=== PATIENT | female | born 1995 | race Caucasian/White ===

== ENCOUNTER 2016-08-01 19:35 | Emergency (ER) | payer MEDICAID ==
[2016-03-14 10:58] VITALS: BMI 29.5
[~2016-08-01 19:35] MED LIST: BENADRYL50 MG PO; IBUPROFEN600 MG PO; PERCOCET 10/3251 TA1 PO; PERCOCET 5-3251 TAB PO; PRENATAL COMPLE1 TAB PO
== END 2016-08-02 00:20 | disposition home or self-care (01) ==
LOC: D.ER 19:35
DX: J06.9 Acute upper respiratory infection, unspecified (principal); F17.200 Nicotine dependence, unspecified, uncomplicated

== ENCOUNTER → 2016-12-14 13:48 | Outpatient (CLI) | payer MEDICAID ==
[2016-03-14 10:58] VITALS: BMI 29.5
[2016-12-14 14:39] LABS: APPEARANCE HAZY (CLEAR); BACTERIA FEW /hpf (NONE SEEN); BILIRUBIN NEGATIVE (NEGATIVE); COLOR DK YELLOW (YELLOW); EPITHELIAL CELLS 0-5 /hpf (0-5); GLUCOSE NEGATIVE (NEGATIVE); KETONE LARGE mg/dL (NEGATIVE); LEUKOCYTE ESTERASE TRACE (NEGATIVE); NITRITE NEGATIVE (NEGATIVE); PROTEIN NEGATIVE (NEGATIVE); RED CELLS - URINE 0-5 /hpf (0-5); SPECIFIC GRAVITY 1.015 (1.005-1.020); UROBILINOGEN NORMAL (NORMAL); WHITE CELLS - URINE 0-5 /hpf (0-5)
[2016-12-14 14:40] LABS: AMORPHOUS SEDIMENT <1+ /lpf (NONE SEEN)
[2016-12-14 14:46] LABS: UDS - AMPHET NEGATIVE QUAL (NEGATIVE); UDS - BARB NEGATIVE QUAL (NEGATIVE); UDS - BENZO NEGATIVE QUAL (NEGATIVE); UDS - COCAINE NEGATIVE QUAL (NEGATIVE); UDS - METH NEGATIVE QUAL (NEGATIVE); UDS - OPIATE NEGATIVE QUAL (NEGATIVE); UDS - PCP NEGATIVE QUAL (NEGATIVE); UDS - THC POSITIVE QUAL (NEGATIVE)
[2016-12-14 15:18] LABS: HEMATOCRIT 35.9 % (36.0-48.0); HEMOGLOBIN 12.9 g/dL (12-16); MCH 34.8 pg (26.0-34.0); MCHC 35.9 g/dL (31.0-37.0); MCV 96.8 fL (80.0-100.0); MEAN PLATELET VOLUME 9.9 fL (7.4-10.4); RBC 3.71 10x6/uL (4.00-5.40); RDW 12.6 % (11.5-14.5); WBC 13.3 10x3/uL (4.8-10.8)
== END | disposition home or self-care (01) ==
LOC: D.LDO 13:48
PROVIDERS: Obstetrics & Gynecology
DX: O09.893 Supervision of other high risk pregnancies, third trimester (principal); Z3A.31 31 weeks gestation of pregnancy; B19.20 Unspecified viral hepatitis C without hepatic coma

== ENCOUNTER 2017-01-10 12:26 | Emergency (ER) | payer MEDICAID ==
[2016-03-14 10:58] VITALS: BMI 29.5
== END 2017-01-10 13:25 | disposition home or self-care (01) ==
LOC: D.ER 12:26
DX: O26.893 Other specified pregnancy related conditions, third trimester (principal); Z3A.30 30 weeks gestation of pregnancy; H66.90 Otitis media, unspecified, unspecified ear; J06.9 Acute upper respiratory infection, unspecified; B19.20 Unspecified viral hepatitis C without hepatic coma; F17.200 Nicotine dependence, unspecified, uncomplicated

== ENCOUNTER → 2017-01-17 18:26 | Outpatient (CLI) | payer MEDICAID ==
[2016-03-14 10:58] VITALS: BMI 29.5
[~2017-01-17 18:26] MED LIST changes: +KLONOPIN0.5 MG PO
== END | disposition home or self-care (01) ==
LOC: D.LDO 18:26
DX: O16.3 Unspecified maternal hypertension, third trimester (principal); Z3A.31 31 weeks gestation of pregnancy

== ENCOUNTER 2017-03-04 07:40 | Inpatient (IN) | payer MEDICAID ==
[~2017-03-04] VITALS: Ht 167.6 cm; Wt 70.3 kg
[2017-03-04 08:08] LABS: UDS - AMPHET NEGATIVE QUAL (NEGATIVE); UDS - BARB NEGATIVE QUAL (NEGATIVE); UDS - BENZO NEGATIVE QUAL (NEGATIVE); UDS - COCAINE NEGATIVE QUAL (NEGATIVE); UDS - METH NEGATIVE QUAL (NEGATIVE); UDS - OPIATE NEGATIVE QUAL (NEGATIVE); UDS - PCP NEGATIVE QUAL (NEGATIVE); UDS - THC NEGATIVE QUAL (NEGATIVE)
[2017-03-04 08:09] LABS: APPEARANCE CLEAR (CLEAR); BILIRUBIN NEGATIVE (NEGATIVE); COLOR YELLOW (YELLOW); GLUCOSE NEGATIVE (NEGATIVE); KETONE NEGATIVE (NEGATIVE); LEUKOCYTE ESTERASE NEGATIVE (NEGATIVE); NITRITE NEGATIVE (NEGATIVE); PROTEIN NEGATIVE (NEGATIVE); UROBILINOGEN NORMAL (NORMAL)
[2017-03-04 08:27] VITALS: BP 123/73; Ht 167.6 cm; Wt 70.3 kg
[2017-03-04 09:15] LABS: HEMATOCRIT 35.3 % (36.0-48.0); HEMOGLOBIN 12.7 g/dL (12-16); MCV 97.2 fL (80.0-100.0); MEAN PLATELET VOLUME 10.6 fL (7.4-10.4); RBC 3.63 10x6/uL (4.00-5.40); RDW 12.7 % (11.5-14.5); WBC 14.6 10x3/uL (4.8-10.8)
--- NOTE | 2017-03-04 19:50 | NUR ---
ASSISTED PT UP TO BATHROOM TO VOID. PT AMBULATED WITH STEADY GAIT WITH NO ASSISTANCE OF NURSE. REPORTS SENSATION HAS RETURNED TO LLE BUT NOW C/O SEVERE PAIN IN SCIATIC AREA OF L LEG AND LOWER BACK. PT ALSO C/O HEADACHE AGAIN. PT VOIDED WITHOUT DIFFICULTY AND AMBULATED BACK INTO BED WITHOUT ASSISTANCE. DR. MERCADO NOTIFIED OF PTS C/O. NEW ORDER RVD FOR PRN PAIN MED. SEE ORDERS.
[2017-03-04 19:55] LABS: HIV 1 & 2- RAPID SCREEN NEGATIVE (NEGATIVE)
--- NOTE | 2017-03-04 20:06 | NUR ---
ICE WATER, COLA, AND COFFEE PROVIDED PER PT REQUEST. PT REQUEST PRN PAIN MED FOR CRAMPING AND LOWER BACK PAIN "11/27". SEE EMAR FOR MOTOR ELECTRICIAN. NO OTHER NEEDS VOICED. INSTRUCTED TO CALL FOR ANY NEEDS. PT VERB UNDERSTANDING.
--- NOTE | 2017-03-04 20:45 | NUR ---
PT ASSISTED UP TO BATHROOM TO VOID. VOIDED LARGE AMOUNT WITHOUT DIFFICULTY. PT PERFORME OWN SCOT CARE. CLEAN MESH PANTIES/PAD PLACED. PT ASSISTED BACK INTO BED. DENIES ANY OTHER NEEDS OR CONCERNS.
--- NOTE | 2017-03-04 22:10 | NUR ---
PT REQUESTS IV BE TAKEN OUT. LOCHIA SCANT WITH NO CLOTS. PT VOIDING WITHOUT DIFFICULTY. AMBULATING WITHOUT DIFFICULTY. IV TO L WRIST DC'D PER REQUEST WITH TIP INTACT. BANDAGE AND PRESSURE TO SITE. PT TOLERATED WELL.
--- NOTE | 2017-03-05 00:01 | NUR ---
Pt ambulatory in hallways and at nurses desk speaking to nurses. Denies any needs.
--- NOTE | 2017-03-05 02:12 | NUR ---
Pt request prn pain med for lower back pain and pain in sciatic area. Pt rates pain "8/10". Also given heating pad to help relieve pain. No other needs voiced. C/L in reach. Bed low. SR upx2.
--- NOTE | 2017-03-05 02:13 | NUR ---
Pt reports voiding without difficulty. Vag bleeding scant with no clots. Fundus firm 1FB below umbillicus and midline.
--- NOTE | 2017-03-05 02:44 | NUR ---
Pt ambulatory to nurses desk requesting refill on ice water. Ice water provided. Pt then went to NBN to check on infant.
[2017-03-05 04:24] VITALS: BP 143/78
--- NOTE | 2017-03-05 04:25 | NUR ---
Pt approaches desk reporting pain in bilateral upper quadrants of abdomen. Followed pt to room to obtain VS and further assess pts pain. Abd soft and non tender to palpation. BS active x4 quads. Pt reports pain starts when she lays on her left side. Offered prn pain med and pt accepted. See EMAR. Will follow up to assess effectiveness. Pt denies any other needs. C/L in reach. Bed low. SR upx2.
[2017-03-05 05:51] LABS: BASOPHILS 0.2 % (0-2); EOSINOPHILS 0.6 % (0-7); HEMATOCRIT 32.8 % (36.0-48.0); HEMOGLOBIN 11.6 g/dL (12-16); IMMATURE GRANULOCYTES 0.4 % (0-5); LYMPHOCYTES 32.9 % (15-50); MCH 34.5 pg (26.0-34.0); MCHC 35.4 g/dL (31.0-37.0); MCV 97.6 fL (80.0-100.0); MEAN PLATELET VOLUME 10.5 fL (7.4-10.4); NEUTROPHILS 59.9 % (40-80); PLATELET COUNT 180 10x3/uL (130-400); RBC 3.36 10x6/uL (4.00-5.40); RDW 12.7 % (11.5-14.5)
--- NOTE | 2017-03-05 06:00 | NUR ---
Pt ambulatory to nurses desk. Reports is feeling better this morning. Denies any needs. Ambulated to room with steady gait.
[2017-03-05 07:03] VITALS: BP 109/66
--- NOTE | 2017-03-05 07:03 | NUR ---
RECEIVED PT LYING SUPINE IN BED. AWAKE. VSS. HRRR WITHOUT AUDIBLE MURMUR. INSPIRATORY WHEEZES NOTED TO UPPER LOBES. CLEAR TO LOWER LOBES. BS X 4. ABDOMEN SOFT/NON-DISTENDED. FUNDUS FIRM AT U/U. RUBRA LOCHIA SMALL AMT. NO CLOTS OR HEAVY BLEEDING NOTED. NEG HOMANS' SIGN. PPP. NO EDEMA NOTED TO BLE. PT DENIES NEEDS. SR UPX 2. CALL LIGHT IN REACH.
[2017-03-05 07:26] LABS: RAPID PLASMA REAGIN Non Reactive (Non Reactive)
--- NOTE | 2017-03-05 08:00 | NUR ---
INFANT TO MOM FOR FEEDING AND BONDING. PT DENIES C/O OR NEEDS.
--- NOTE | 2017-03-05 08:15 | NUR ---
DR NORTH TO ROOM. VISITS WITH PT.
--- NOTE | 2017-03-05 09:30 | NUR ---
PT LYING SUPINE IN BED. ON PHONE AT THIS TIME. DENIES C/O OR NEEDS.
--- NOTE | 2017-03-05 11:11 | NUR ---
PT SITTING UP IN BED. C/O PAIN TO BACK AND LEFT HIP AND LEG OF "8" ON 0-10 PAIN SCALE. NORCO 5/325 GIVEN PO ORDERED. PT INSTRUCTED ON MED. VERBALIZES UNDERSTANDING.
[2017-03-05 11:17] LABS: HEPATITIS C ANTIBODY >11.0 (0.0-0.9)
--- NOTE | 2017-03-05 12:00 | NUR ---
PT CALLS ON LIGHT. C/O PAIN TO LEFT LOWER QUADRANT OF ABDOMEN. FUNDUS FIRM AT U/1. RUBRA LOCHIA SMALL AMT. PT STATES "I HAVEN'T HAD A BOWEL MOVEMENT IN THREE DAYS". STATES PASSING GAS. ABDOMEN SOFT/NON-DISTENDED. PT PROVIDED WARMED APPLE AND PRUNE JUICE.
--- NOTE | 2017-03-05 12:30 | NUR ---
PT AMBULATORY IN LR AND TO NURSERY TO GET INFANT. DENIES PAIN AT THIS TIME.
--- NOTE | 2017-03-05 13:10 | NUR ---
PT AMBULATORY IN LR WITH INFANT. RETURNING TO [facility] AT THIS TIME. DENIES C/O OR NEEDS.
[2017-03-05 14:17] LABS: RUBELLA IGG 9.57 index (Immune >0.99)
[2017-03-05 15:18] VITALS: BP 118/71
--- NOTE | 2017-03-05 15:18 | NUR ---
PT SITTING UP IN BED. TALKING ON PHONE. VS NOTED. DENIES HEAVY BLEEDING OR PASSING CLOTS. DENIES LIGHTHEADEDNESS OR FEELING FAINT. PT C/O BACK AND ABDOMINAL PAIN OF "7-8" ON 0-10 PAIN SCALE. NORCO 5/325 GIVEN PO ORDERED. PT INSTRUCTED ON MED. VERBALIZES UNDERSTANDING.
--- NOTE | 2017-03-05 16:17 | NUR ---
PT AMBULATORY IN HALLS. STATES PAIN NOW "6" ON 0-10 PAIN SCALE.
--- NOTE | 2017-03-05 16:29 | NUR ---
PT TO SHOWER AT THIS TIME. BED LINENS CHANGED.
--- NOTE | 2017-03-05 17:00 | NUR ---
KPAD TO PT ROOM. SET UP AND PT INSTRUCTED ON USE. VERBALIZES UNDERSTANDING.
--- NOTE | 2017-03-05 17:30 | NUR ---
PT AMBULATORY OFF UNIT TO MEET FAMILY COMING TO SEE PT. DENIES C/O.
--- NOTE | 2017-03-05 18:15 | NUR ---
PT SITTING IN FLOOR VISITING WITH OTHER CHILDREN. PT UP TO RECEIVE RHOGAM INJECTION.
--- NOTE | 2017-03-05 18:22 | NUR ---
RHOGAM FULL DOSE GIVEN IM TO RGM. BANDAID TO SITE. PT INSTRUCTED ON MED. VERBALIZES UNDERSTANDING.
--- NOTE | 2017-03-05 18:55 | NUR ---
REPORT GIVEN TO ON-COMING SHIFT.
--- NOTE | 2017-03-05 19:12 | NUR ---
PT. WALKING ABOUT IN ROOM. INTO BED FOR ASSESSEMENT. ONE SMALL CHILD WALKING ABOUT IN ROOM AND ANOTHER IN SEAT. FOB ON SOFA. BREATH SOUNDS CLEAR AND BOWEL SOUNDS AUDIBLE. PT. REPORTS PAIN SCALE OF 6 OF 10 ON PAIN SCALE. REPORTS HEADACHE WHICH SHE STATES IS SINUS RELATED, BACKPAIN AND LT. LOWER ABD. CRAMPING. RATES A 6 OF 10 ON PAIN SCALE. FUNDUS FIRM U/2 AND LOCHIA RUBRA MOD. SKIN WARM AND DRY.
--- NOTE | 2017-03-05 19:26 | NUR ---
MOTRIN AND NORCO GIVEN ORDERED AND PER PT. REQUEST. PT. AND FOB WITH QUESTIONS ABOUT GBS AND TREATMENT AND ALSO RHOGAM SHOT AND REASON FOR. BOTH ISSUES EXPLAINED AND PT. AND FOB QUESTIONS ANSWERED.
--- NOTE | 2017-03-05 20:15 | NUR ---
PT. LYING IN BED WITH HOB AT 45 DEGREES. RATES PAIN A 4 OF 10 ON PAIN SCALE.
--- NOTE | 2017-03-05 20:20 | NUR ---
AMBULATING IN HALLWAY. TO NBN AND PUSHING INFANT IN OPEN CRIB BACK TO ROOM. PT. CHEERFUL AND WITH STEADY GAIT.
--- NOTE | 2017-03-05 22:00 | NUR ---
WALKING IN HALLWAY WITH FAMILY. GAIT STEADY.
--- NOTE | 2017-03-05 23:00 | NUR ---
ROUNDS MADE. PT CURRENTLY LYING IN BED AA&O X4. PAIN AND NEEDS ASSESSED. PT IS BEGINNING TO EAT A SALAD. REQUEST SALAD DRESSING. ONE PACKAGE PROVIDED. PT REPORT HER PAIN IS "FINE" RIGHT NOW AND DECLINES OFFER MADE TO RECEIVE MEDICATION AT THIS TIME. PT REPORTS SHE WANTS TO EAT SOMETHING BEFORE SHE TAKES ANY PAIN MEDICATION TO VOID BECOMING NAUSEATED. NO FURTHER NEEDS VOICED AT THIS TIME. INFANT QUIET IN OPEN CRIB AT PT'S BEDSIDE.
--- NOTE | 2017-03-05 23:27 | OP ---
PATIENT NAME: ZOË GOMEZ MEDICAL RECORD: [id number] :93 LOCATION:[id number] ADMISSION DATE:03/04/17 SURGEON: NATHANIEL NORTH MD DATE OF OPERATION: 03/04/2017 Delivery Note Precipitous controlled delivery of 6 pounds 2 ounces male , 9 and 9 Apgars, epidural anesthesia, no laceration. Spontaneous delivery of intact-appearing placenta. ESTIMATED BLOOD LOSS: 400 cc. COMPLICATIONS: None. TRANSINT:[id number] Voice Confirmation ID: [id number] DOCUMENT ID: [id number] NATHANIEL NORTH MD at 2327 CC: [id number] DICTATION DATE: 03/05/17 0757 ADJUNCT FACULTY MATHEMATICS DEPARTMENT: 03/05/17 0819 ADM IN [place] [id number] [place] [address]
--- NOTE | 2017-03-05 23:50 | NUR ---
PT RINGS CALL LIGHT REQUESTING PAIN MEDICATION NOW. RATES PAIN 7.5/10. NORCO 5/325MG ONE TAB GIVEN. PT DENIES FURTHER NEEDS AT THIS TIME.
--- NOTE | 2017-03-06 01:00 | NUR ---
ROUNDS MADE. PT LYING IN BED AWAKE WATCHING TV. INFANT SWADDLED IN CRIB AT BEDSIDE. PT'S PAIN REASSESSED. PT REPORTS "A MANAGABLE 6." STATES MY GUTS ARE STARTING TO CRAMP. OFFER MADE TO BRING PT MOTRIN AT NEXT TIME ALLOWED. PT REQUEST THAT MOTRIN BE BROUGHT TO HER WHEN SHE CAN HAVE IT. DENIES FURTHER NEEDS AT THIS TIME.
--- NOTE | 2017-03-06 01:50 | NUR ---
PT MEDICATED W/MOTRIN 600MG PO. DENIES NEEDS AT THIS TIME. SWADDLED IN CRIB AT PT'S BEDSIDE. QUIET AND W/OUT RESP DISTRESS.
--- NOTE | 2017-03-06 04:00 | NUR ---
ROUNDS MADE. PT LYING TO LEFT SIDE W/EYES CLOSED, OPENS EYES SPONTANEOUSLY WHILE THIS RN AT THE DOOR. PT DENIES PAIN OR NEEDS AT PRESENT.
--- NOTE | 2017-03-06 06:09 | NUR ---
ROUNDS MADE. PT RESTING TO LEFT SIDE W/EYES CLOSED. RESP EVEN. PT LEFT UNDISTURBED AT THIS TIME.
[2017-03-06 07:35] VITALS: BP 113/53
--- NOTE | 2017-03-06 07:35 | NUR ---
TO ROOM, AM ASSESSMENT COMPLETED. SEE FLOWSHEET. PT DENIES HEAVY BLEEDING OR PASSING CLOTS. PT REQUESTS PAIN MEDICATION FOR ABD/BACK PAIN/CRAMPING. SEE EMAR FOR ALL MEDS ADM BY THIS RN. PT HAS BREAKFAST TRAY ON BEDSIDE TABLE. SR UP X2, CL/PHONE WITHIN REACH. PT DENIES OTHER NEEDS AT THIS TIME.
--- NOTE | 2017-03-06 07:45 | NUR ---
DR. NORTH IN ROOM SPEAKING WITH PT.
--- NOTE | 2017-03-06 07:50 | NUR ---
PT AMBULATORY IN HALLWAY, SMILING. DENIES NEEDS.
--- NOTE | 2017-03-06 10:30 | NUR ---
PT AMBULATORY IN HALLWAY. PT SMILING, DENIES NEEDS AT THIS TIME.
--- NOTE | 2017-03-06 12:00 | NUR ---
DIETARY SERVES LUNCH TRAY. PT DENIES NEEDS AT THIS TIME.
[2017-03-06] MEDS ORDERED: IBUPROFEN600 MG PO (15:25)
--- NOTE | 2017-03-06 16:10 | NUR ---
DISCHARGE INSTRUCTIONS EXPLAINED TO PT, COPY GIVEN, ALONG WITH PRESCRIPTION FOR MOTRIN, FOLLOW UP APPT CARD, PP INSTRUCTION SHEET, AND HOME MED REC. PT ASKING QUESTIONS REGARDING TAKING THE DEPO PROVERA AND HAVING HEPATITS C. DR. NORTH NOTIFIED OF PT'S CONCERN. TELEPHONE ORDER RECEIVED TO HOLD DEPO PROVERA UNTIL PT CLEARS THIS WITH HER LIVER DOCTOR. PT INFORMED, STATING "LET'S JUST PRETEND I DIDN'T ASK THEN". DEPO PROVERA NOT GIVEN TODAY. IMPORTANCE STRESSED NOTHING IN VAGINA UNTIL CLEARED BY DOCTOR AT HER FOLLOW UP APPT. PT AGREES. AWAITING FOR HER RIDE TO ARRIVE TO TAKE HER HOME.
--- NOTE | 2017-03-06 16:30 | NUR ---
PT'S RIDE HERE, PT REFUSES WHEELCHAIR, PT AMBULATORY OFF UNIT WITH IN CARSEAT TO PRIVATE VEHICLE WITH FRIEND DRIVING.
== END 2017-03-06 16:30 | disposition home or self-care (01) | DRG 774 ==
LOC: D.LDO 07:40 → D.LD 08:10 → D.SDCHOLD 15:41 → D.LD 15:49
PROVIDERS: Obstetrics & Gynecology; ADMIT Obstetrics & Gynecology
PROC: 10E0XZZ Delivery of Products of Conception, External Approach (ICD-10-PCS; principal; 2017-03-04)
DX: O99.344 Other mental disorders complicating childbirth (principal); O98.42 Viral hepatitis complicating childbirth; B19.20 Unspecified viral hepatitis C without hepatic coma; F41.9 Anxiety disorder, unspecified; O99.334 Smoking (tobacco) complicating childbirth; O62.3 Precipitate labor; Z3A.38 38 weeks gestation of pregnancy; Z37.0 Single live birth; O26.893 Other specified pregnancy related conditions, third trimester; Z67.91 Unspecified blood type, Rh negative

== ENCOUNTER 2017-08-12 23:37 | Emergency (ER) | payer MEDICAID ==
[2017-03-04 08:27] VITALS: BMI 25.0
== END 2017-08-13 00:58 | disposition home or self-care (01) ==
LOC: D.ER 23:37
DX: J11.1 Influenza due to unidentified influenza virus with other respiratory manifestations (principal); J20.9 Acute bronchitis, unspecified; B19.20 Unspecified viral hepatitis C without hepatic coma; F17.200 Nicotine dependence, unspecified, uncomplicated

== ENCOUNTER 2017-12-15 06:38 | Emergency (ER) | payer MEDICAID ==
[2017-03-04 08:27] VITALS: BMI 25.0
== END 2017-12-15 07:39 | disposition home or self-care (01) ==
LOC: D.ER 06:38
DX: J20.9 Acute bronchitis, unspecified (principal); B19.20 Unspecified viral hepatitis C without hepatic coma